=== PATIENT | male | born 1940 ===

== ENCOUNTER 2017-12-26 11:03 | Emergency (ER) | payer MEDICARE ==
--- NOTE | 2017-12-26 12:29 | C.PDOC ---
History Of Present Illness 77 year old male patient presents to the ER with complaints of feeling light- headed. Patient reports he checked his blood pressure at home, and his systolic BP was in the 90s. He also checked his blood sugar and it was 200. Patient denies of chest pain, SOB, palpitations, nausea, vomiting, diarrhea, headache, visual changes, slurred speech, facial droop, extremity weakness, and sensory changes. Time Seen by Provider: 12/26/17 11:29 Chief Complaint (Nursing): High Blood Pressure History Per: Patient History/Exam Limitations: no limitations Onset/Duration Of Symptoms: Hrs Current Symptoms Are (Timing): Still Present Associated Symptoms: Other (light-headed ). denies: Chest Pain, Blurred Vision , Focal Weakness, Headache Quality Of Symptoms: denies: Other (palpitations) Severity: Mild Past Medical History Reviewed: Historical Data, Nursing Documentation, Vital Signs Vital Signs: Last Vital Signs Temp 98.4 F 12/26/17 13:20 Pulse 66 12/26/17 13:20 Resp 16 12/26/17 13:20 BP 120/71 12/26/17 13:20 Pulse Ox 96 12/26/17 13:20 - Medical History PMH: Benign Prostatic Hyperplasia, HTN Surgical History: Appendectomy Family History: States: No Known Family Hx - Social History Hx Alcohol Use: No Hx Substance Use: No - Immunization History Hx Tetanus Toxoid Vaccination: No Hx Influenza Vaccination: No Hx Pneumococcal Vaccination: No Review Of Systems Constitutional: Negative for: Other (headache) Eyes: Negative for: Vision Change Cardiovascular: Negative for: Chest Pain, Palpitations Respiratory: Negative for: Shortness of Breath Gastrointestinal: Negative for: Nausea, Vomiting, Abdominal Pain, Diarrhea Skin: Negative for: Rash Neurological: Positive for: Other (light-headed). Negative for: Weakness, Numbness, Incoordination, Change in Speech, Confusion, Seizures, Altered Mental Status, Headache Physical Exam - Physical Exam Appears: Well, Non-toxic, No Acute Distress Skin: Normal Color, Warm, Dry Head: Atraumatic, Normacephalic Eye(s): bilateral: Normal Inspection (no nystagmus ), PERRL, EOMI Ear(s): Bilateral: Normal Oral Mucosa: Moist Neck: Supple Cardiovascular: Rhythm Regular Respiratory: Normal Breath Sounds, No Rales, No Rhonchi, No Wheezing Gastrointestinal/Abdominal: Normal Exam, Bowel Sounds, Soft, No Tenderness Back: No CVA Tenderness Extremity: Normal ROM Pulses: Left Radial: Normal, Right Radial: Normal Neurological/Psych: Oriented x3, Normal Speech, Normal Cognition, Normal Cranial Nerves, No Cerebellar Signs, Normal Motor, Normal Sensation, Normal Reflexes Gait: Steady ED Course And Treatment - Laboratory Results Result Diagrams: 12/26/17 12:34 12/26/17 12:34 ECG: Interpreted By Me, Viewed By Me (NSR 71 bpm, left axis deviation, no acute ST/T wave changes) ECG Interpretation: Normal O2 Sat by Pulse Oximetry: 97 (RA) Pulse Ox Interpretation: Normal Progress Note: Blood work, UA, EKG ordered and reviewed. Reevaluation Time: 13:15 Reassessment Condition: Improved (On reassessment, patient is resting comfortably and states he feels better, lightheadedness has resolved. Blood work, UA, EKG unremarkable. Patient is comfortable being discharged home. He was instructed to follow up with PMD Dr. Li in 1-2 days, and understands he should return to ED if symptoms worsen.) Disposition Counseled Patient/Family Regarding: Studies Performed, Diagnosis, Need For Followup - Disposition Referrals: Bere Li MD [Staff Provider] - Disposition: HOME/ ROUTINE Disposition Time: 13:15 Condition: STABLE Additional Instructions: FOLLOW UP WITH YOUR DOCTOR IN 1-2 DAYS RETURN TO EMERGENCY ROOM IF SYMPTOMS WORSEN/RETURN SEGUIMIENTO CON OBRIEN MDICO EN 1-2 TABARES REGRESAR AL KWADWO DE EMERGENCIA SI LOS SNTOMAS EMPEORAN / REGRESA Instructions: Type 2 Diabetes Forms: General Discharge Instructions, [facility] (South Korean) Print Language: PERUVIAN - Clinical Impression Clinical Impression: Evaluation by medical service required, Light-headed - Scribe Statement The provider has reviewed the documentation as recorded by the Scribe Robles Do Provider Attestation: All medical record entries made by the Scribe were at my direction and personally dictated by me. I have reviewed the chart and agree that the record accurately reflects my personal performance of the history, physical exam, medical decision making, and the department course for this patient. I have also personally directed, reviewed, and agree with the discharge instructions and disposition.
[2017-12-26 12:43] LABS: SQUAMOUS EPITHIAL 1 /hpf (0-5); URINE BILIRUBIN NEGATIVE (NEGATIVE); URINE BLOOD NEGATIVE (NEGATIVE); URINE CLARITY Clear (Clear); URINE COLOR Yellow (YELLOW); URINE GLUCOSE (UA) 1+ mg/dL (Normal); URINE LEUKOCYTE ESTERASE NEG Leu/uL (Negative); URINE PROTEIN 1+ mg/dL (NEGATIVE); URINE UROBILINOGEN NORMAL mg/dL (0.2-1.0)
[2017-12-26 12:46] LABS: BASO # 0.1 K/uL (0.0-0.2); BASO % 0.8 % (0.0-2.0); EOS # 0.2 K/uL (0.0-0.7); EOS % 2.1 % (0.0-4.0); LYMPH # 2.9 K/uL (1.0-4.3); LYMPH % 39.6 % (20.0-40.0); MEAN CELL VOLUME 82.1 fL (80.0-94.0); MEAN CORPUSCULAR HGB CONC 32.9 g/dL (33.0-37.0); MEAN PLATELET VOLUME 10.3 fL (7.2-11.7); MONO # 0.5 K/uL (0.0-0.8); MONO % 7.2 % (0.0-10.0); NEUT # 3.7 K/uL (1.8-7.0); NEUT % 50.3 % (50.0-75.0); NRBC % 0.1 % (0.0-2.0); RBC 5.18 Mil/uL (4.40-5.90); RED CELL DISTRIBUTION WIDTH 14.5 % (11.5-14.5); WHITE BLOOD COUNT 7.3 K/uL (4.8-10.8)
[2017-12-26 12:50] LABS: INR 1.1; PROTHROMBIN TIME 12.2 SECONDS (9.7-12.2)
[2017-12-26 12:52] LABS: ALB/GLOB RATIO 1.4 (1.0-2.1); ALBUMIN 3.9 g/dL (3.5-5.0); ALT/SGPT 29 U/L (21-72); AST/SGOT 27 U/L (17-59); BLOOD UREA NITROGEN 22 mg/dL (9-20); CALCIUM 9.4 mg/dl (8.6-10.4); GFR AFRICAN-AMERICAN > 60; GFR NON-AFRICAN AMERICAN > 60
[2017-12-26 13:06] LABS: CK-MB < 0.22 ng/mL (0.0-3.38)
[2017-12-26 13:21] VITALS: BP 120/71; PULSE 66; RESP 16; TEMP 98.4
[2017-12-29 22:55] VITALS: O2SAT 97
== END 2017-12-26 13:41 | disposition home or self-care (01) ==
LOC: C.ER 11:03
DX: R42 Dizziness and giddiness (principal)

== ENCOUNTER 2018-06-25 09:53 | Emergency (ER) | payer MEDICARE, OTHER ==
[2018-06-25] MEDS ORDERED: Sodium Chloride 0.9% 500 ML IV ONE (10:38)
[2018-06-25 11:01] LABS: VENOUS BLOOD GAS BASE EXCESS 2.4 mmol/L (0.0-2.0); VENOUS BLOOD GAS PCO2 38 mmHg (40-60); VENOUS BLOOD GAS PO2 39 mm/Hg (30-55); VENOUS BLOOD PH 7.45 (7.32-7.43)
[2018-06-25 11:06] LABS: BASO % 0.3 % (0.0-2.0); HEMOGLOBIN 14.1 g/dL (12.0-18.0); LYMPH # 1.1 K/uL (1.0-4.3); LYMPH % 15.6 % (20.0-40.0); MEAN CELL VOLUME 82.5 fL (80.0-94.0); MEAN CORPUSCULAR HEMOGLOBIN 27.4 pg (27.0-31.0); MEAN CORPUSCULAR HGB CONC 33.2 g/dL (33.0-37.0); MEAN PLATELET VOLUME 9.6 fL (7.2-11.7); MONO # 0.5 K/uL (0.0-0.8); MONO % 6.4 % (0.0-10.0); NEUT # 5.6 K/uL (1.8-7.0); NEUT % 77.7 % (50.0-75.0); RBC 5.13 Mil/uL (4.40-5.90); RED CELL DISTRIBUTION WIDTH 14.2 % (11.5-14.5); WHITE BLOOD COUNT 7.3 K/uL (4.8-10.8)
[2018-06-25 11:20] LABS: ALB/GLOB RATIO 1.4 (1.0-2.1); ALBUMIN 3.9 g/dL (3.5-5.0); ALT/SGPT 20 U/L (21-72); AST/SGOT 21 U/L (17-59); BLOOD UREA NITROGEN 14 mg/dL (9-20); CALCIUM 8.5 mg/dl (8.6-10.4); GFR NON-AFRICAN AMERICAN > 60
[2018-06-25 11:30] LABS: SQUAMOUS EPITHIAL 3 /hpf (0-5); URINE BILIRUBIN NEGATIVE (NEGATIVE); URINE BLOOD 1+ (NEGATIVE); URINE CLARITY Clear (Clear); URINE COLOR Yellow (YELLOW); URINE GLUCOSE (UA) 3+ mg/dL (Normal); URINE LEUKOCYTE ESTERASE NEG Leu/uL (Negative); URINE PROTEIN 1+ mg/dL (NEGATIVE); URINE UROBILINOGEN NORMAL mg/dL (0.2-1.0)
--- NOTE | 2018-06-25 11:31 | C.PDOC ---
History Of Present Illness 78 y/o male,w/PMhx of diabetes, HTN, and BPH, presents to the ER complaining of intermittent fever, productive cough, and headache which has been present for the past 4 days. Patient states that he has rib pain and mild shortness of breath with coughing.Denies having sore throat, ear pain ,runny nose, nausea, vomiting, abdominal pain, diarrhea, dysuria, and hematuria. Time Seen by Provider: 06/25/18 10:11 Chief Complaint (Nursing): Fever History Per: Patient History/Exam Limitations: no limitations Onset/Duration Of Symptoms: Days Current Symptoms Are (Timing): Still Present Severity: Moderate Past Medical History Reviewed: Historical Data, Nursing Documentation, Vital Signs Vital Signs: Last Vital Signs Temp 102.8 F H 06/25/18 10:31 Pulse 119 H 06/25/18 09:56 Resp 24 06/25/18 09:56 BP 128/63 06/25/18 09:56 Pulse Ox 93 L 06/25/18 09:56 - Medical History PMH: Benign Prostatic Hyperplasia, HTN Surgical History: Appendectomy Family History: States: No Known Family Hx - Social History Hx Alcohol Use: No Hx Substance Use: No - Immunization History Hx Tetanus Toxoid Vaccination: No Hx Influenza Vaccination: No Hx Pneumococcal Vaccination: No Review Of Systems Except As Marked, All Systems Reviewed And Found Negative. Constitutional: Positive for: Fever. Negative for: Chills Respiratory: Positive for: Cough, Shortness of Breath Gastrointestinal: Negative for: Nausea, Vomiting, Abdominal Pain, Diarrhea Genitourinary: Negative for: Dysuria, Hematuria Musculoskeletal: Positive for: Other (rib pain) Physical Exam - Physical Exam Appears: Other (mildly uncomfortable, speaking in full sentences, coughing intermitttently) Skin: Normal Color, Warm, Dry Head: Atraumatic, Normacephalic Eye(s): bilateral: Normal Inspection Nose: Normal Oral Mucosa: Moist Throat: Normal, No Erythema, No Exudate Neck: Supple Cardiovascular: Rhythm Regular (with tachycardia) Respiratory: No Accessory Muscle Use, No Rales, Rhonchi (mild rhonchi in bilateral bases), No Wheezing Gastrointestinal/Abdominal: Soft, No Tenderness, No Guarding, No Rebound Extremity: Normal ROM, Other (no leg edema) Neurological/Psych: Oriented x3, Normal Speech ED Course And Treatment - Laboratory Results Result Diagrams: 06/25/18 10:53 06/25/18 10:53 Lab Results: pO2 39 mm/Hg (30-55) 06/25/18 10:58 VBG pH 7.45 (7.32-7.43) H 06/25/18 10:58 VBG pCO2 38 mmHg (40-60) L 06/25/18 10:58 VBG HCO3 26.2 mmol/L 06/25/18 10:58 VBG Total CO2 27.6 mmol/L (22-28) 06/25/18 10:58 VBG O2 Sat (Calc) 78.3 % (40-65) H 06/25/18 10:58 VBG Base Excess 2.4 mmol/L (0.0-2.0) H 06/25/18 10:58 VBG Potassium 3.7 mmol/L (3.6-5.2) 06/25/18 10:58 Sodium 134.0 mmol/l (132-148) 06/25/18 10:58 Chloride 99.0 mmol/L (98-107) 06/25/18 10:58 Glucose 274 mg/dl (75-110) H 06/25/18 10:58 Lactate 1.5 mmol/L (0.7-2.1) 06/25/18 10:58 Total Bilirubin 0.7 mg/dL (0.2-1.3) 06/25/18 10:53 AST 21 U/L (17-59) 06/25/18 10:53 ALT 20 U/L (21-72) L D 06/25/18 10:53 Alkaline Phosphatase 73 U/L (38-126) 06/25/18 10:53 Total Protein 6.6 g/dL (6.3-8.3) 06/25/18 10:53 Albumin 3.9 g/dL (3.5-5.0) 06/25/18 10:53 Globulin 2.7 gm/dL (2.2-3.9) 06/25/18 10:53 Albumin/Globulin Ratio 1.4 (1.0-2.1) 06/25/18 10:53 O2 Sat by Pulse Oximetry: 93 Pulse Ox Interpretation: Abnormal - Radiology CXR: Interpreted by Me, Viewed By Me CXR Interpretation: Yes: No Acute Disease Progress Note: Labs, UA, and CXR ordered.Patient treated with Tylenol PO and IV Fluids. Disposition Counseled Patient/Family Regarding: Studies Performed, Diagnosis, Need For Followup, Rx Given - Disposition Referrals: Kortney Ewing MD [Staff Provider] - Disposition: HOME/ ROUTINE Disposition Time: 13:35 Condition: STABLE Additional Instructions: FOLLOW UP WITH YOUR DOCTOR IN 1-2 DAYS USE MEDICATIONS DIRECTED RETURN TO EMERGENCY ROOM IF YOUR SYMPTOMS BECOME WORSE SEGUIR CON OBRIEN MDICO EN 1-2 TABARES UTILICE MEDICAMENTOS [facility]ST[facility] SE DIRIGE VUELVA A LA KWADWO DE EMERGENCIA SI [place] SNTOMAS SE HACEN [place] Prescriptions: Azithromycin [Zithromax] 250 mg PO DAILY #4 tab Benzonatate [Tessalon Perles] 100 mg PO BID PRN #15 sgl PRN Reason: Cough Naproxen 375 mg PO BID PRN #20 tablet PRN Reason: pain Instructions: Acute Bronchitis, Adult (DC) Forms: [employer] (Serbian) Print Language: KOREAN - Clinical Impression Clinical Impression: Fever, Bronchitis - Scribe Statement The provider has reviewed the documentation as recorded by the Scribe Ananda Johnson Provider Attestation: All medical record entries made by the Scribe were at my direction and personally dictated by me. I have reviewed the chart and agree that the record accurately reflects my personal performance of the history, physical exam, medical decision making, and the department course for this patient. I have also personally directed, reviewed, and agree with the discharge instructions and disposition.
[2018-06-25 11:48] LABS: CK-MB < 0.22 ng/mL (0.0-3.38)
--- NOTE | 2018-06-25 11:51 | RAD ---
Date of service: 06/25/2018 PROCEDURE: CHEST RADIOGRAPH, 1 VIEW HISTORY: fever COMPARISON: None available. FINDINGS: LUNGS: Clear. PLEURA: No pneumothorax or pleural fluid seen. CARDIOVASCULAR: No aortic atherosclerotic calcification present. Normal. OSSEOUS STRUCTURES: No significant abnormalities. VISUALIZED UPPER ABDOMEN: Normal. OTHER FINDINGS: None. IMPRESSION: No active disease.
[2018-06-25 11:57] VITALS: RESP 18
[2018-06-25] MEDS ORDERED: Sodium Chloride 0.9% 1,000 ML ONE (12:16)
[2018-06-25 14:03] VITALS: BP 116/62; PULSE 79; TEMP 99
[2018-06-25 17:44] VITALS: O2SAT 93
== END 2018-06-25 14:02 | disposition home or self-care (01) ==
LOC: C.ER 09:53
DX: J40 Bronchitis, not specified as acute or chronic (principal); R50.9 Fever, unspecified; E11.9 Type 2 diabetes mellitus without complications; I10 Essential (primary) hypertension; N40.0 Benign prostatic hyperplasia without lower urinary tract symptoms
CPT/HCPCS: 71045; 80053; 81001; 82550; 82553; 82803; 84484; 85025; 87040; 87086; 87804; 96360; 99285; J7040

== ENCOUNTER 2018-09-12 08:08 | Outpatient (CLI) | payer MEDICARE | END 2018-09-12 08:09 | disposition home or self-care (01) | LOC: C.MRIC 08:08 | DX: R55 Syncope and collapse (principal) ==

== ENCOUNTER → 2018-09-24 | Outpatient (CLI) | payer MEDICARE | END | disposition home or self-care (01) | LOC: C.USIC 09:12 | DX: R55 Syncope and collapse (principal) ==